=== PATIENT | male | born 1960 | race Caucasian/White ===

== ENCOUNTER 2022-03-06 23:40 | Emergency (ER) | payer BC, SELFPAY ==
[2022-03-06 23:42] VITALS: BP 128/97; PULSE 73; RESP 16; TEMP 36.4; O2SAT 100; BMI 23.7
--- NOTE | 2022-03-06 23:56 | EX.ED.DYSGE1 ---
HPI History of Present Illness Chief Complaint: Allergic Reaction Informant: patient Onset/Context/Timing Onset: Today Context: Gradual Onset Timing: Continuous Quality: swelling Location: R hand and into forearm Current Severity: Moderate Maximum Severity: Moderate Worsened by: nothing in particular Relieved by: nothing but only tried a Claritin Associated Symptoms Associated Symptoms: sore at stinger site; no other sx Narrative Narrative: Patient was stung by a bee in the thenar eminence of the right hand earlier today. He states gradually, started having swelling throughout the hand, and the swelling and redness has progressed up the right forearm toward the elbow. He denies any pain except for at the stinger site, he soaked the area with a paste he made out of baking soda and thinks he got the stinger out. He denies any other pain. He denies any systemic symptoms outside of the right forearm. No lightheadedness, shortness of breath, rash or itching, or edema of hands or feet elsewhere. He states remotely in the past he was stung by some yellow jackets and had diffuse reaction everywhere and he is concerned that is happening again. The sting occurred more than 6-8 hours prior to evaluation. [facility] Medical History Bee sting Home Medications prednisone 20 mg tablet 40 mg PO DAILY #6 TABLETS 03/06/22 [Rx Last Taken Unknown] Allergy/AdvReac Type Severity Reaction Status Date / Time bee venom protein (honey bee) Allergy Swelling Verified 03/06/22 23:41 [bee sting] Social History Smoking Status: Never smoker ROS ROS ED Constitutional Constitutional ED: Denies chills or fever(s) Musculoskeletal Musculoskeletal: Reports as per HPI, extremity pain and other Details: Swelling right hand and into forearm ; Denies neck pain Integumentary Reports rash; Denies Abrasions or wounds Neurologic Neurologic: Denies paresthesias or weakness EXAM Physical Exam Const Vital Signs: 03/06/22 23:42 03/07/22 00:15 Temperature 97.5 F L Temperature Source Temporal Pulse Rate 73 88 Respiratory Rate 16 Blood Pressure 128/97 H 135/79 H Blood Pressure Mean 107 Pulse Ox 100 97 Oxygen Delivery Method Room Air Positive well nourished and well developed General Appearance ED: well developed and NAD Neck full ROM and supple Resp normal respiratory effort Back/Spine normal ROM and normal to inspection Extremity Extremity Narrative: Nontender right upper extremity including the sting site, which is only visible when I montez the nearby skin of the right thenar eminence. No stinger in place. No induration or signs of cellulitis. There is erythema in the right hand that is nontender and blanches, the entire right hand is edematous including dorsally. Full range of motion of the fingers and the wrist. There is some faint blanching nontender erythema up the volar aspect of the right forearm toward the antecubital fossa, but not beyond. There is no epitrochlear lymphadenopathy. It is difficult to tell if this is lymphangitis, it is not well-defined streaking. Neuro oriented x3, no focal motor deficits and no sensory deficits noted Sensorium / Orientation: alert Psych mental status grossly normal and thought process normal Skin no rashes or lesions noted and no wounds Rashes: no rashes MDM MDM MDM Narrative Medical decision making narrative: I reassured this patient. His vital signs are normal, he is not anaphylactic and he should not get anaphylactic now that it has been so long and this is the extent of the reaction. I believe this is a localized reaction, I gave him a dose of Benadryl, and told him that if he does not notice any difference tomorrow, things are not starting to improve, he may fill and take a wait and see prescription for prednisone 3 days. We discussed reasons to return. He is comfortable with that plan. I do not think this represents infection, it certainly could be some redness going up his forearm from lymph drainage of simply the immune reaction. And I do not think this will result in systemic reaction. Discharge Plan Triage Chief Complaint: Allergic Reaction ED Provider: Clif Cash Dx/Rx/DC Orders Clinical Impression: Local reaction to hymenoptera sting Instructions: ED Insect Sting, Local Reaction Prescriptions: New prednisone 20 mg tablet 40 mg PO DAILY Qty: 6 0RF Primary Care Provider: Care Physician,No Primary Referrals: Doctor, ER [Other] - As Needed (If you get short of breath or rash/symptoms all over) Activity Restrictions/Additional Instructions: If Benadryl does not help, or you have worsening tomorrow despite Benadryl, you may fill the prescription for the prednisone and take as prescribed until finished. Disposition Disposition: Home, Self Care Discharge Date/Time: 03/07/22 00:19
[2022-03-07] MEDS: DiphenhydrAMINE 25 MG Capsule 75 MG PO (00:12)
[2022-03-07 00:15] VITALS: BP 135/79; PULSE 88; O2SAT 97
== END 2022-03-07 00:19 | disposition home or self-care (01) ==
LOC: ED 03-07 00:09
PROVIDERS: Emergency Provider Emergency Medicine; Visit Provider Emergency Medicine
DX: T63.441A Toxic effect of venom of bees, accidental (unintentional), initial encounter (principal); M79.89 Other specified soft tissue disorders
CPT/HCPCS: 99283

== ENCOUNTER → 2023-10-17 | Outpatient (CLI) | payer BC, SELFPAY ==
[2023-10-17 16:39] LABS: Absolute Lymphocyte Count 1.73 X10^3/uL (0.83-4.51); Absolute Neutrophil Count 2.2 X10^3/uL (2.0-7.7); Basophil# 0.04 X10^3/uL; Basophil% 0.8 % (0-1); Eosinophils% 6.4 % (0-5); Hematocrit 37.8 % (40-54); Hemoglobin 12.1 g/dL (13.0-16.5); Lymphocyte # 1.73 X10^3/ul (0.83-4.51); Lymphocyte % 36.7 % (19-41); Mean Corpuscular Hgb 30.3 pg (27.0-32.0); Mean Corpuscular Volume 94.5 fL (80-94); Mean Platelet Vol. 10.5 fl (6.2-12.0); Monocyte# 0.48 X10^3/uL; Monocyte% 10.2 % (0-10); NRBC Flagged by Analyzer 0 % (0-5); Neutrophil # 2.15 X10^3/uL (2.7-7.7); Neutrophil % 45.7 % (47-70); Platelet Count 131 K/mm3 (150-450); RBC Distribution Width CV 13.8 % (11.6-14.6); RBC Distribution Width SD 48.2 fl (35.1-43.9); White Blood Count 4.7 K/mm3 (4.4-11.0)
[2023-10-17 17:05] LABS: BNP,B-Type NATRIURETIC PEPTIDE 64.6 pg/mL (0-100)
[2023-10-17 17:10] LABS: ALB/GLOB Ratio 0.9 RATIO (0.9-2.4); AST(SGOT) 40 U/L (15-37); Alanine Aminotransfer ALT/SGPT 36 U/L (16-61); Albumin, Serum 3.6 g/dL (3.2-5.0); Alkaline Phosphatase 61 U/L (45-117); Anion Gap 6 (5-15); BUN 18 mg/dL (7-18); BUN/Creat Ratio 17.5 RATIO (10-20); Calcium,Total 8.9 mg/dL (8.5-10.1); Chloride 108 mmol/L (98-107); Cholesterol 148 mg/dL (200); Creatinine, Serum 1.03 mg/dL (0.70-1.30); EST Glomerular Filtration Rate 77 mL/min (>60); Est Glom Filt Rate - Afr Amer 93 mL/min (>60); Globulin 3.9 g/dL (2.2-4.2); Glucose 81 mg/dL (74-106); High Density Lipoprotein 57 mg/dL; PSA,Total - Annual Screen 1.18 ng/mL (0.00-4.00); Protein, Total 7.5 g/dL (6.4-8.2); Sodium Level 139 mmol/L (136-145); Thyroid Stim Hormone (TSH) 3.53 uIU/mL (0.358-3.74); Triglycerides 98 mg/dL; Very Low Density Lipoprotein 20 mg/dL (5-40)
== END | disposition home or self-care (01) ==
LOC: BIMLAB 15:50
PROVIDERS: PCP Internal Medicine; Referring Provider Nurse Practitioner; Visit Provider Nurse Practitioner
DX: Z00.00 Encounter for general adult medical examination without abnormal findings (principal); R60.0 Localized edema; R03.0 Elevated blood-pressure reading, without diagnosis of hypertension; Z12.5 Encounter for screening for malignant neoplasm of prostate
CPT/HCPCS: 36415; 80053; 80061; 83880; 84153; 84443; 85025; G0103

== ENCOUNTER → 2023-10-19 | Outpatient (CLI) | payer BC, SELFPAY ==
--- NOTE | 2023-10-19 10:40 | VDLE_ITS ---
Reason For Study: LLE Swelling RIGHT LEFT CFV is compressible, spontaneous, phasic, GSV is normal. competent and demonstrates normal CFV is compressible, spontaneous, phasic, augmentation. competent, and demonstrates normal Procedure augmentation. This is a venous duplex using B-mode, color FV is compressible, spontaneous, phasic, flow and spectral Doppler. competent and demonstrates normal Exam performed in department. augmentation. The exam was diagnostic. POP V is compressible, spontaneous, phasic, A preliminary report was called and/or faxed competent and demonstrates normal to Chela Abraham office. augmentation. T/P Trunk is compressible. PTV is compressible. LT PerV is compressible. Multiple compressible varicose veins noted throughout Lt Calf. VL/Venous Duplex US, Unilateral Interpretation Summary Deep veins of the left lower extremity are patent and compressible segmentally. There is no evidence of left lower extremity deep vein thrombosis. The left great saphenous vein ankush ears patent and compressible segmentally. Left calf varicosities noted Ordering Physician: Chela Abraham Referring Physician: Chela Abraham Performed By: Donnell Gracia, RVT
== END | disposition home or self-care (01) ==
LOC: CVS 10:37
PROVIDERS: PCP Internal Medicine; Referring Provider Nurse Practitioner; Visit Provider Nurse Practitioner
DX: R60.0 Localized edema (principal)
CPT/HCPCS: 93971

== ENCOUNTER → 2023-10-27 | Outpatient (CLI) | payer BC, SELFPAY | END | disposition home or self-care (01) | LOC: LABSPEC 14:23 | PROVIDERS: PCP Internal Medicine; Visit Provider Nurse Practitioner | DX: D64.9 Anemia, unspecified (principal) | CPT/HCPCS: 82274 ==

== ENCOUNTER → 2023-10-28 | Outpatient (CLI) | payer BC, SELFPAY | END | disposition home or self-care (01) | LOC: LABSPEC 09:20 | PROVIDERS: PCP Internal Medicine; Referring Provider Nurse Practitioner; Visit Provider Nurse Practitioner | DX: D64.9 Anemia, unspecified (principal) | CPT/HCPCS: 82274 ==

== ENCOUNTER → 2023-10-30 | Outpatient (CLI) | payer BC, SELFPAY | END | disposition home or self-care (01) | LOC: LABSPEC 15:55 | PROVIDERS: PCP Internal Medicine; Referring Provider Nurse Practitioner; Visit Provider Nurse Practitioner | DX: D64.9 Anemia, unspecified (principal) | CPT/HCPCS: 82274 ==

== ENCOUNTER → 2023-11-03 | Outpatient (CLI) | payer BC, SELFPAY ==
--- NOTE | 2023-11-03 16:46 | CT_ITS ---
STUDY: CT ABDOMEN AND PELVIS WITH CONTRAST REASON FOR EXAM: Male, 63 years old. unilateral leg swellling r/o pelvic neoplasm RADIATION DOSAGE (If Supplied By Facility): CTDIvol = ( 15.26 ) mGy, DLP = ( 751.40 ) mGycm TECHNIQUE: Transaxial images were obtained from the dome of the diaphragm to the symphysis pubis without oral contrast. Oral and amp; IV Readi-CAT and amp; 100mL Isovue-370 was administered. Sagittal and coronal images were reconstructed. Individualized dose optimization techniques were used for this CT. COMPARISON: None. FINDINGS: The visualized lung bases are unremarkable. The visualized portions of the heart are within normal limits. Up to 1.4 cm cysts in the liver. Normal gallbladder and extrahepatic biliary system. Normal spleen. Normal pancreas. Normal bilateral adrenal glands. Bilateral subcentimeter renal cysts.. Normal visualized stomach. Normal small intestine. Fecal retention in the colon. The appendix is visualized and appears normal. Normal abdominal aorta. Normal inferior vena cava. Normal retroperitoneum. Normal urinary bladder. No evidence of pelvic mass. Normal abdominal wall. Normal osseous structures. CT/Abdomen/Pelvis WITH Contrast IMPRESSION: Hepatic and renal cysts. Electronically Signed: Herve Saunders DO at 18:43 EDT ,
== END | disposition home or self-care (01) ==
LOC: CVS 16:43
PROVIDERS: PCP Internal Medicine; Referring Provider Nurse Practitioner; Visit Provider Nurse Practitioner
DX: R60.0 Localized edema (principal)
CPT/HCPCS: 74177; Q9967

== ENCOUNTER → 2023-11-14 | Outpatient (CLI) | payer BC, SELFPAY ==
--- NOTE | 2023-11-14 12:46 | ECHOD_ITS ---
Reason For Study: MURMUR Procedure This was a 2D Doppler, Color Flow transthoracic echocardiogram. Myocardial strain analysis was performed in this exam to aid in the assessment of cardiac function. Exam performed in department. Left Ventricle Normal LV size. Left ventricular systolic function is normal. The left ventricular ejection fraction is 55 %. No regional wall motion abnormalities noted. Right Ventricle Normal RV size. Normal systolic function. Atria The left atrium is mildly enlarged. The right atrium is mildly enlarged. Mitral Valve Bileaflet mitral valve prolapse. Mild-Moderate (1-2+) eccentric mitral valve insufficiency. Tricuspid Valve Normal tricuspid valve. Mild tricuspid valve insufficiency. Pulmonary artery systolic pressure is 26 mmHg. Aortic Valve Trisinus/trileaflet aortic valve. Mild (1+) aortic valve insufficiency. Pulmonic Valve Normal pulmonic valve. Great Vessels Mildly dilated aortic root. The pulmonary artery is normal size. Inferior vena cava collapse with respiration. Pericardium/Pleural No pericardial effusion. MMode/2D Measurements & Calculations LVIDd: 5.7 cm IVSd: 1.0 cm LVOT diam: 2.1 cm LVIDs: 3.3 cm LVPWd: 0.93 cm LVOT area: 3.4 cm2 RVDd: 4.6 cm FS: 41.8 % Ao root diam: 3.9 cm LAV(MOD-bp): 78.9 ml LVAd ap4: 36.4 cm2 LAV(MOD-bp) Indexed: 38.3 ml/m2 LVLd ap4: 9.0 cm LAV(MOD-sp2): 86.3 ml EDV(MOD-sp4): 123.6 ml LAV(MOD-sp4): 67.3 ml EDV(sp4-el): 125.8 ml LVAs ap4: 23.2 cm2 LVLs ap4: 7.9 cm ESV(MOD-sp4): 56.6 ml ESV(sp4-el): 57.8 ml EF(MOD-sp4): 54.2 % EF(sp4-el): 54.0 % LVAd ap2: 38.3 cm2 SV(MOD-sp4): 67.0 ml SV(MOD-sp2): 68.6 ml LVLd ap2: 9.2 cm EDV(MOD-sp2): 133.3 ml EDV(sp2-el): 135.7 ml LVAs ap2: 24.7 cm2 LVLs ap2: 8.0 cm ESV(MOD-sp2): 64.7 ml ESV(sp2-el): 64.6 ml EF(MOD-sp2): 51.5 % SV(sp4-el): 68.0 ml LA dimension(2D): 4.0 cm LA A4 area: 23.5 cm2 RA A4 area: 22.3 cm2 TAPSE: 2.2 cm Time Measurements MV dec time: 0.22 sec Doppler Measurements & Calculations MV E max ender: 76.9 cm/sec Lat Peak E' Ender: 9.8 cm/sec Med Peak E' Ender: 10.1 cm/sec MV A max ender: 59.5 cm/sec E/E' lat: 7.9 E/E' med: 7.6 MV E/A: 1.3 Ao V2 max: 158.7 cm/sec AI max ender: 472.5 cm/sec MV dec slope: 347.7 cm/sec2 Ao max P.1 mmHg AI max P.3 mmHg Ao V2 mean: 118.1 cm/sec Ao mean P.9 mmHg AI dec slope: 184.6 cm/sec2 Ao V2 VTI: 33.4 cm AI P1/2t: 749.6 msec AV (velocity ratio): 0.63 LIAN(I,D): 2.1 cm2 LIAN(V,D): 2.4 cm2 LV V1 max: 111.4 cm/sec SV(LVOT): 71.2 ml PA V2 max: 106.2 cm/sec LV V1 max P.0 mmHg LV V1 mean P.6 mmHg LV V1 mean: 74.7 cm/sec LV V1 VTI: 20.9 cm TR max ender: 234.3 cm/sec TR max P.0 mmHg ECHO/Echo Complete Interpretation Summary Normal LV size. Left ventricular systolic function is normal. The left ventricular ejection fraction is 55 %. Mildly dilated aortic root. Bileaflet mitral valve prolapse. Mild-Moderate (1-2+) eccentric mitral valve insufficiency. The global longitudinal strain is normal. The global longitudinal strain = -19 % (normal). Ordering Physician: Chela Abraham Referring Physician: Isabella Heath Performed By: Reanna Velazquez RDCS
== END | disposition home or self-care (01) ==
PROVIDERS: PCP Internal Medicine; Referring Provider Nurse Practitioner; Visit Provider Nurse Practitioner
DX: R01.1 Cardiac murmur, unspecified (principal)
CPT/HCPCS: 93306

== ENCOUNTER 2024-02-07 08:27 | Day surgery (SDC) | payer BC, SELFPAY ==
[2024-02-07] VITALS (9 sets, daily range): BP systolic 101–138; BP diastolic 44–93; PULSE 42–87; RESP 16; TEMP 36.1–37.1; O2SAT 94–97; BMI 22.4
--- NOTE | 2024-02-07 | COLBX_PTH ---
PATIENT: SIMONA DOOLEY LOC: EN U#:[id number] AGE/SX: 63/M ROOM: RE02/07/[address]: Dr. Nicolas Cifuentes MD : 1960 BED: DIS: 02/07/2024 SPEC #: [id number] RECD: 02/07/24 12:22 STATUS: CHEN AUGUSTIN #: [id number] JAME: 02/07/24 00:[address]: Nicolas Cifuentes DEPT: SURGICAL PATHOLOGY RECD BY: Ashok Friend ENTERED: 02/07/24 12:22 SP TYPE: COLON BX AMISH DR: Dr. Isabella Heath MD Tissues: A - Cecum, NOS B - Ascending colon C - Sigmoid colon biopsy D - Sigmoid colon biopsy Procedures: Surgery Specimen Level IV HEADER OPERATION: Colonoscopy and polypectomy PRE-OP DIAGNOSIS: History of colonic polyps TISSUE SUBMITTED: A- Cecal polyp, B- Ascending colon polyp x2, C- Sigmoid colon polyp, D- Sigmoid colon polyp #2 MICROSCOPIC DIAGNOSIS A. Cecal polyp, polypectomy: Fragments of tubular adenoma. B. Ascending colon polyp x2, polypectomy: Fragments of tubular adenoma x2. C. Sigmoid colon polyp, polypectomy: Fragments of hyperplastic polyp. D. Sigmoid colon polyp #2, polypectomy: Fragments of tubular adenoma. 02/08/2024 MICROSCOPIC DESCRIPTION Slides are reviewed. GROSS DESCRIPTION A. Received in fixative is one container labeled with the patient's name and designated Cecal polyp. The specimen consists of multiple irregular fragments of light tao soft tissue that in aggregate measure 1.5 x 0.3 x 0.1 cm. The specimen is totally submitted in one cassette. B. Received in fixative is one container labeled with the patient's name and designated Ascending colon polyp x2. The specimen consists of two irregular fragments of light tao soft tissue that in aggregate measure 0.4 x 0.3 x 0.1 and 0.1 and 0.3cm in greatest dimension. The specimen is totally submitted in one cassette. C. Received in fixative is one container labeled with the patient's name and designated Sigmoid colon polyp. The specimen consists of two irregular fragments of light tao soft tissue that in aggregate measure 0.6 x 0.4 x 0.1 cm. The specimen is totally submitted in one cassette. D. Received in fixative is one container labeled with the patient's name and designated Sigmoid colon polyp #2. The specimen consists of multiple irregular fragments of light tao soft tissue that in aggregate measure 0.8 x 0.2 x 0.1 cm. The specimen is totally submitted in one cassette. SJ 02/07/2024 TC:1 CPT:[id number]
[2024-02-07] MEDS: Lactated Ringers 1,000 ML 15 ML IV (08:45)
--- NOTE | 2024-02-07 09:16 | PCM.PRE.AN2 ---
ASA Classification* ASA Classification ASA Classification: 2 Assessment & Plan Anesthesia* Anesthesia Assessment Anesthesia Assessment: Discussed sedation and/or anesthesia options, risks, benefits, and alternatives with patient/parents/legal guardian/POA. Questions invited. The patient/parents/legal guardian/POA seems to understand and agrees to proceed with anesthesia plan. Reviewed the physical assessment, medical history, allergy history and patient home medications list prior to surgery/procedure/anesthetic and documented any changes. Performed airway and anesthesia risk assessments. Anesthesia Type Anesthesia Type: MAC History Source History Obtained from:: Patient and Chart Anesthesia Focused Assessment* Temperature: 98.7 F Pulse Rate: 87 Blood Pressure: 138/93 Respiratory Rate: 16 Pulse Ox: 97 Oxygen Delivery Method: Room Air Airway Assessment Mouth opens: >3 cm Mallampati Score: III Teeth Condition: Caps/Crowns (Patient has several crowns. They are all tight.) and Missing (Patient had a couple molars pulled upper and lower on the left side.) Neck Range of motion (ROM): Full ROM Focused Labs Anesthesia Preop lab: CBC WBC 4.7 K/mm3 (4.4-11.0) 10/17/23 15:51 RBC 4.00 M/mm3 (4.6-6.2) L 10/17/23 15:51 Hgb 12.1 g/dL (13.0-16.5) L 10/17/23 15:51 Hct 37.8 % (40-54) L 10/17/23 15:51 Plt Count 131 K/mm3 (150-450) L 10/17/23 15:51 CHEMISTRY Potassium 4.0 mmol/L (3.5-5.1) 10/17/23 15:51 Sodium 139 mmol/L (136-145) 10/17/23 15:51 BUN 18 mg/dL (7-18) 10/17/23 15:51 Creatinine 1.03 mg/dL (0.70-1.30) 10/17/23 15:51 Glucose 81 mg/dL (74-106) 10/17/23 15:51 TSH 3.53 uIU/mL (0.358-3.74) 10/17/23 15:51 COAG Pre-Assessment Diagnosis/Proposed Procedure Planned Operative Procedure(s): COLONOSCOPY-OA Anesthesia History Anesthesia History - retort operator: Anesthesia History - retort operator Hx Hospitalization No 02/02/24 12:16 Any Problems With Anesthesia No 02/02/24 12:16 Cholinesterase deficiency No 02/02/24 12:16 You/Your Family Experience No 02/02/24 12:16 fever (hyperthermia) with Relationship Recent Exposure to Contagious No 02/07/24 08:46 Disease Does patient have nerve No 02/02/24 12:16 stimulator Patient instructed to have device shut off --Does patient have Pacemaker No 02/07/24 08:46 or ICD? When Was Last Pacemaker Check QUESTION #4 FULL TEXT: You/Your Family Experience fever (hyperthermia) with Anesthesia Last Oral Intake Last Oral intake: Last Oral Intake NPO since 05:00 02/07/24 08:46 Meds taken in AM with sips of water? Meds patient instructed to take am of surgery Any additional information?: Yes NPO since: 05:30 (Patient finished prep at 5:30 AM.) PONV PONV - retort operator: PONV - retort operator Female No 02/02/24 12:16 HX of Motion Sickness No 02/02/24 12:16 HX of N/V After Surgery No 02/02/24 12:16 Non-Smoker Yes 02/02/24 12:16 Duration of Surgery greater No 02/02/24 12:16 than 60 minutes Number of Risk Factors 1 02/02/24 12:16 PONV Score Low Risk 02/02/24 12:16 Height & Weight Height & Weight: Anesthesia: Height & Weight Height 6 ft 1 in 02/07/24 08:46 Weight: 77.111 kg 02/07/24 08:46 Body Mass Index (BMI) 22.4 02/07/24 08:46 Respiratory Assessment Respiratory Assessment - retort operator: Respiratory Tract Infection Hx - retort operator Hx Respiratory Tract Infection No 02/02/24 12:16 STOP Sleep Apnea STOP Sleep Apnea - retort operator: STOP Sleep Apnea - retort operator Hx Hypertension No 02/02/24 12:16 Hx Sleep Apnea No 02/02/24 12:16 CPAP BIPAP Do you snore loudly (louder No 02/02/24 12:16 than talking or can be heard Do you often feel tired/ No 02/02/24 12:16 fatigued/ sleepy during daytime? Has anyone observed you stop No 02/02/24 12:16 breathing during sleep? STOP Results Negative 02/02/24 12:16 QUESTION #5 FULL TEXT : Do you snore loudly (louder than talking or can be heard through closed doors)? Tobacco Use History Tobacco Use History - retort operator: Tobacco Use History - retort operator Tobacco Use Smoking Status Never smoker 02/02/24 12:16 Hx Tobacco Use No 02/02/24 12:16 Years Smoking Packs Smoked per Day Smoking Cessation Date was within the last 15 years Hx Smoking Cessation Date Hx Smoking Cessation Counseling Hematologic Medial History Hematologic Hx - retort operator: Hematologic Medical Hx - [employer] senior specialist Hx of Blood Transfusion No 02/02/24 12:16 Hx of Transfusion in last 3 No 02/02/24 12:16 Months Date of Last Transfusion (if within last 3 months) Ever experience any problems No 02/02/24 12:16 with transfusion(s)? Specify any problems Hx of Preganancy in last 3 N/A 02/02/24 12:16 Months Nurse Filling Out Transfusion VCHRISTIN 02/02/24 12:16 & Questions: Date: 02/02/24 02/02/24 12:16 Time: 12:17 02/02/24 12:16 Patient unable to answer at this time (ie. confused, unrespo /Reproduction History /Reproductive History - retort operator: /Reproductive Hx- retort operator Hx Now Gestational Age (in weeks): EDC: Hx Hx Para Hx Section SAB Active Medications Active Medications: Current Medications Generic Name Dose Route Start Last Admin Trade Name Freq PRN Reason Stop Dose Admin Lactated Ringer's 1,000 mls @ 15 mls/hr 02/07/24 08:45 02/07/24 08:45 IV 15 mls/hr .Q48H LIDIA Administration PFSH Medical History Wears glasses Alcohol use Non-smoker History of irregular heartbeat History of echocardiogram Family history of colon cancer in father Hx of colonic polyps Hypertension Mitral valve prolapse Colon cancer screening Anemia Hives Asthma Seasonal allergies Bee sting Home Medications ?Medication ?Instructions ?Recorded ?Last Taken ?Type acetaminophen 500 mg tablet 500 mg PO Q6H PRN pain 12/27/23 Unknown History (Tylenol Extra Strength) Allergy/AdvReac Type Severity Reaction Status Date / Time bee venom protein (honey Allergy Swelling Verified 02/07/24 08:46 bee) (bee sting) Family History Grandfather Myocardial infarction Father Cancer lung Colon cancer CAD (coronary artery disease) Mother Cancer adenocarcinoma, gallbladder Surgical History Hx of colonoscopy Social History adopted: No household members: other details: dog- pfieffer housing: house number of children: 2 current occupational status: employed current occupation: [employer]. pets and animals: Yes (1) pets and animals: dog(s) sexually active: No Smoking Status: Never smoker Tobacco: How many years used: 2 alcohol intake: current alcohol intake frequency: holidays/special occasions only Alcohol type: beer substance use type: does not use caffeine: Yes (2) Type: coffee what type of physical activity do you participate in: walking frequency: 5-6 times per week jennifer/yazidism: Sabianist seatbelt use: always do you feel safe at home: Yes Review of Systems (Anesthesia) ROS Narrative System reviewed and no additional complaints, except as documented.
--- NOTE | 2024-02-07 10:01 | HP.PCM_ITS ---
[facility] General General Date of Service: 02/07/24 Chief Complaint: Surveillance colonoscopy [facility] Narrative SIMONA DOOLEY, is a 63 M who presents for surveillance colonoscopy. He confirms his preappointment questionnaire that he has a history of benign colon polyps removed approximately 12 years ago at his last colonoscopy. He also confirms that he has not experienced any change in his bowel habits-and particularly denies any notice of blood. He also shares a family history of a diagnosis of colon cancer in his father in the sixth decade of life. Lastly he confirms that his prep was completed successfully and that his output is now overall clear with some brown coloring. [facility] Medical History (Updated 02/07/24 @ 10:[address] Nicolas Cifuentes MD) Wears glasses Alcohol use Non-smoker History of irregular heartbeat History of echocardiogram Family history of colon cancer in father Hx of colonic polyps Hypertension Mitral valve prolapse Colon cancer screening Anemia Hives Asthma Seasonal allergies Bee sting Home Medications ?Medication ?Instructions ?Recorded ?Last Taken ?Type acetaminophen 500 mg tablet 500 mg PO Q6H PRN pain 12/27/23 Unknown History (Tylenol Extra Strength) Allergy/AdvReac Type Severity Reaction Status Date / Time bee venom protein (honey Allergy Swelling Verified 02/07/24 08:46 bee) (bee sting) Family History Grandfather Myocardial infarction Father Cancer lung Colon cancer CAD (coronary artery disease) Mother Cancer adenocarcinoma, gallbladder Surgical History Hx of colonoscopy Social History adopted: No household members: other details: dog- pfeiffer housing: house number of children: 2 current occupational status: employed current occupation: [employer]. pets and animals: Yes (1) pets and animals: dog(s) sexually active: No Smoking Status: Never smoker Tobacco: How many years used: 2 alcohol intake: current alcohol intake frequency: holidays/special occasions only Alcohol type: beer substance use type: does not use caffeine: Yes (2) Type: coffee what type of physical activity do you participate in: walking frequency: 5-6 times per week jennifer/anabaptism: Hinduism seatbelt use: always do you feel safe at home: Yes Past Medical/Surgical History Planned Operation Planned Operative Procedure(s): COLONOSCOPY-OA Previous Hospitalizations/Surgeries HX Hospitalizations: No Any Problems With Anesthesia: No You/Your Family Experience Fever (Hyperthermia) With Anes: No Cholinesterase deficiency: No Cardiovascular Hx Hypertension: No Respiratory Hx Sleep Apnea: No Hx Respiratory Tract Infection/Cold (presently): No Do You Snore Loudly (louder than talking or can be heard): No Do You Often Feel Tired/ Fatigued/ Sleepy Dring Daytime?: No Has Anyone Observed You Stop Breathing During Sleep?: No Result (for STOP score): Negative Smoking Status: Never smoker Neurological Does patient have nerve stimulator: No Miscellaneous Recent Exposure to Contagious Disease: No Allergies bee venom protein (honey bee) (bee sting) Allergy (Verified 02/07/24 08:46) Swelling Discharge Is Pt Admitted From a Long-Term, or a Long Term: No After D/C, Where Do you Plan to Go: Return Home Vital Signs Vital Signs Vital Signs: 02/07/24 08:46 02/07/24 08:46 02/07/24 09:22 Temperature 98.7 F 98.7 F Temperature Source Temporal Pulse Rate 87 87 Respiratory Rate 16 16 Respiratory Pattern Normal Blood Pressure 138/93 H 138/93 H Blood Pressure Mean 108 Blood Pressure Source Monitor Blood Pressure Position Sitting Blood Pressure Location Left Arm Pulse Ox 97 97 Oxygen Delivery Method Room Air Room Air Weight Weight: 170 lb Body Mass Index (BMI) 22.4 Physical Exam Const alert, oriented x3 and no apparent distress Resp normal respiratory effort GI GI Narrative: Nondistended soft, nontender to palpation x 4 quadrants Assessment & Plan Assessment/Plan (1) Hx of colonic polyps: PLAN: Patient is 63-year-old male who presents for surveillance colonoscopy with history of benign polyps at his last colonoscopy 12 years ago. He denies any present GI complaints. He does appear to be at some increased risk for colon cancer as well given a diagnosis of colon cancer in his father in his 60s. Patient has completed prep for today's procedure and overall states the output is clear but does note some tenting of the output. Hopefully, this does not compromise the sensitivity of her exam. Patient is made aware that this can affect the recommended interval to next colonoscopy irrespective of other exam findings. Will now proceed to the endoscopy suite for colonoscopy as scheduled. Surgery Risks - Colonoscopy Risks Include but are not Limited To: Risks include but are not limited to: Bleeding, perforation requiring further surgery, inability to complete colonoscopy requiring barium enema.
--- NOTE | 2024-02-07 11:04 | OP.CCLET_ITS ---
02/07/2024 Isabella Heath MD [address] [place] [address] [place] [address] Re : Colonoscopy procedure for Huber Mckinney Dear Dr. Heath This procedure was performed on Wednesday, February 07, 2024. My impressions and recommendations are as follows: Impressions : - Three 3 to 5 mm, non-bleeding polyps in the sigmoid colon, in the ascending colon and in the cecum, removed with a hot snare. Resected and retrieved. - One 2 mm polyp in the sigmoid colon. Biopsied. - The examination was otherwise normal on direct and retroflexion views. Recommendations : - Discharge patient to home (via wheelchair). - Resume previous diet today. - No aspirin, ibuprofen, naproxen, or other non-steroidal anti-inflammatory drugs for 2 days after biopsy. - Await pathology results. - Repeat colonoscopy date to be determined after pending pathology results are reviewed for surveillance based on pathology results. - Telephone my office for pathology results in 1 week. My findings are described in the full procedure note, which is enclosed. If I can be of further assistance, please feel free to contact me at Doctor phone number(s): , Work: . Sincerely, Nicolas Cifuentes MD 02/07/2024 11:03:52 AM This report has been signed electronically.
--- NOTE | 2024-02-07 11:04 | OP.COLON_ITS ---
Patient Name: Huber Mckinney Procedure Date: 02/07/2024 9:55 AM Date of : 1960 Age: 63 Procedure: Colonoscopy Indications: High risk colon cancer surveillance: Personal history of colonic polyps, Family history of colon cancer Providers: Nicolas Cifuentes MD Referring MD: Nicolas Cifuentes MD Medicines: See the Anesthesia note for documentation of the administered medications Patient Profile: Last Colonoscopy: more than 10 years ago. Complications: No immediate complications. Estimated blood loss: Minimal. Procedure: Pre-Anesthesia Assessment: - The heart rate, respiratory rate, oxygen saturations, blood pressure, adequacy of pulmonary ventilation, and response to care were monitored throughout the procedure. After I obtained informed consent, the scope was passed under direct vision. Throughout the procedure, the patient's blood pressure, pulse, and oxygen saturations were monitored continuously. The Colonoscope was introduced through the anus and advanced to the cecum, identified by the appendiceal orifice, IC valve and transillumination. The colonoscopy was performed without difficulty. The patient tolerated the procedure well. The quality of the bowel preparation was adequate to identify polyps greater than 5 mm in size. Scope In: 10:08:31 AM Scope Withdrawal Time 0 hours 33 minutes 37 seconds Scope Out: 10:56:37 AM Total Procedure Duration Time 0 hours 48 minutes 6 seconds Findings: The perianal and digital rectal examinations were normal. Three semi-pedunculated, non-bleeding polyps were found in the sigmoid colon, ascending colon and cecum. The polyps were 3 to 5 mm in size. These polyps were removed with a hot snare. Resection and retrieval were complete. Estimated blood loss was minimal. A 2 mm polyp was found in the sigmoid colon. The polyp was semi-sessile. Biopsies were taken with a cold forceps for histology. Estimated blood loss was minimal. The exam was otherwise without abnormality on direct and retroflexion views. Impression: - Three 3 to 5 mm, non-bleeding polyps in the sigmoid colon, in the ascending colon and in the cecum, removed with a hot snare. Resected and retrieved. - One 2 mm polyp in the sigmoid colon. Biopsied. - The examination was otherwise normal on direct and retroflexion views. Recommendation: - Discharge patient to home (via wheelchair). - Resume previous diet today. - No aspirin, ibuprofen, naproxen, or other non-steroidal anti-inflammatory drugs for 2 days after biopsy. - Await pathology results. - Repeat colonoscopy date to be determined after pending pathology results are reviewed for surveillance based on pathology results. - Telephone my office for pathology results in 1 week. Procedure Code(s): --- Professional --- 52321, Colonoscopy, flexible; with removal of tumor(s), polyp(s), or other lesion(s) by snare technique 77160, 59, Colonoscopy, flexible; with biopsy, single or multiple Diagnosis Code(s): --- Professional --- Z86.010, Personal history of colonic polyps D12.5, Benign neoplasm of sigmoid colon D12.2, Benign neoplasm of ascending colon D12.0, Benign neoplasm of cecum Z80.0, Family history of malignant neoplasm of digestive organs CPT copyright 2021 [employer]. All rights reserved. The codes documented in this report are preliminary and upon funeral driver review may be revised to meet current compliance requirements. Nicolas Cifuentes MD 02/07/2024 11:03:52 AM This report has been signed electronically. Number of Addenda: 0 Note Initiated On: 02/07/2024 9:55 AM
--- NOTE | 2024-02-07 11:09 | PCM.POST.ANE ---
Anesthesia: Postop Eval I Current Vital Signs Temperature: 97 F Pulse Rate: 62 Blood Pressure: 105/78 Respiratory Rate: 16 Pulse Ox: 95 Oxygen Delivery Method: Room Air Assessment Airway patent: Yes Spontaneous unlabored respirations: Yes Mental status: Asleep nausea: No Vomiting: No Anesthesia Complication: No Fluid Hydration Crystalloid volume administer (ml): 900 Total IV fluid infused: 900 Progress Note Anesthesia document: Postop Eval 1 completed: Yes
--- NOTE | 2024-02-07 16:27 | PCM.POSTANE2 ---
Anesthesia Postop Eval I Sum Postop Eval Completion status Anesthesia document: Postop Eval 1 completed: Yes Anesthesia Postop Eval I Summary Anesthesia Postop Eval I Summary: Anesthesia Postop Eval I: Assessment Summary Airway patent Yes 02/07/24 11:10 [email or web address] Spontaneous unlabored Yes 02/07/24 11:10 [email or web address] respirations Mental status Asleep 02/07/24 11:10 [email or web address] nausea No 02/07/24 11:10 [email or web address] Vomiting No 02/07/24 11:10 [email or web address] Anesthesia Postop Eval I: Fluid Summary Crystalloid volume administer 900 02/07/24 11:10 [email or web address] (ml) Colloids volume administered ( ml) Blood Product volume administered (ml) Total IV fluid infused 900 02/07/24 11:10 [email or web address] Anesthesia Postop Eval I: Summary Notes Anesthesia Complication No 02/07/24 11:10 [email or web address] Anesthesia Complication Comment: Post-operative progress note Anesthesia: Postop Eval II Evaluation Mental status: Awake and Calm Pain Level: 0 nausea: No Vomiting: No
== END 2024-02-07 12:15 | disposition home or self-care (01) ==
LOC: EN 08:28 → AC 08:29
PROVIDERS: PCP Internal Medicine; Referring Provider Internal Medicine; Visit Provider Surgery
PROC: 0DJD8ZZ Inspection of Lower Intestinal Tract, Via Natural or Artificial Opening Endoscopic (ICD-10-PCS; CPT 45378; principal; 2024-02-07 09:25)
DX: Z12.11 Encounter for screening for malignant neoplasm of colon (principal); I10 Essential (primary) hypertension; Z80.0 Family history of malignant neoplasm of digestive organs; Z86.010 Personal history of colon polyps; J45.909 Unspecified asthma, uncomplicated; D12.0 Benign neoplasm of cecum; D12.2 Benign neoplasm of ascending colon; D12.5 Benign neoplasm of sigmoid colon
CPT/HCPCS: 45380; 45385; 88305; J7120; J2405